=== PATIENT | male | born 1980 | race Caucasian/White ===

== ENCOUNTER 2017-10-28 13:03 | Emergency (ER) | payer MEDICARE, MEDICAID, SELFPAY ==
[2017-10-28 13:08] VITALS: BP 116/72; PULSE 83; RESP 16; TEMP 36.8; O2SAT 98
--- NOTE | 2017-10-28 13:08 | ED.GENADUL ---
Disposition Clinical Impression: Homicidal thoughts, Stress at home Disposition: HOME Condition: Stable Instructions: Stress (ED) Additional Instructions: Take your regular medications as directed. Follow-up with [facility] as directed. Return to the emergency department any worsening or new concerning symptoms. Medical Decision Making - Medical Decision Making 37-year-old male with history of schizoaffective disorder, Tourette's and polysubstance abuse who presents with homicidal ideation after a verbal argument with his brother prior to arrival. Debra from [facility] here to evaluate patient. She is well familiar with patient spoke to him prior to his arrival. Patient denies suicidal ideation. Patient still feels homicidal but denies feeling a plan at this time. Debra states that patient lives with his brother. Possible plan is for patient to go stay with his sister at this time. Vitals within normal limits. Patient appears relaxed and in no acute distress. He is cooperative and pleasant. Staff who is familiar with patient states that he appears much more relaxed than usual. No acute findings on exam. 1345 -- D/w Debra - pt will go to sister's house with sister and sister's for the weekend. He has to wait for sister to be home so he will temporarily go to his brother's house until they can pick him up. Patient admitted to feeling homicidal at times but denies any means or intent. He states he will stay away from his brother in a different part of the house. He states that if he starts to feel angry, he will go to the neighbor's house. Debra states she is unsure why he was even brought here as she encouraged patient to leave the house earlier and call the police if he needed if he was feeling homicidal and that he did not need to come to the emergency department. She has arranged for him to follow-up with [facility] next week. Patient will go home by [facility]. History of Present Illness - General Stated complaint: CALEX Time Seen by Provider: 10/28/17 13:05 Source: patient Mode of arrival: ambulatory Limitations: no limitations - History of Present Illness Initial comments: Patient is a 37-year-old male with history of schizoaffective disorder, polysubstance abuse who presents with homicidal ideation after a verbal argument with brother prior to arrival. Patient is well-known to mental health services and Debra layup worker JASON spoke to patient about this prior to his arrival and police were contacted and patient requested mental health services and they brought him here. Patient denies suicidal ideation. Patient states initially he had a plan to drag his brother's face across the pavement. He does state he still feels homicidal but denies this plan at present. Denies any acute medical complaints. Denies any drug or alcohol use today. Denies any hallucinations. - Related Data Risperidone [Risperdal] 6 mg PO DAILY 06/12/12 Divalproex ER [Depakote ER] 2,500 mg PO DAILY 08/04/14 Clonidine HCl 0.2 mg PO BID 06/10/16 LORazepam [Ativan] 1 mg PO PRN PRN 06/10/16 Thiothixene 5 mg PO BID 06/10/16 Acetaminophen [Tylenol] 500 mg PO Q4H PRN PRN 10/13/16 Aspirin [Aspir 81] 81 mg PO QAM 10/13/16 Desmopressin Acetate 0.05 mg PO HS 10/13/16 Docusate Sodium [Colace] 100 mg PO QAM PRN 10/13/16 Furosemide [Lasix] 10 mg PO QAM PRN 10/13/16 Ibuprofen 800 mg PO Q8H PRN 10/13/16 Nitroglycerin 0.4 mg SL PRN PRN 11/01/16 Allergies Allergy/AdvReac Type Severity Reaction Status Date / Time Penicillins Allergy Unknown Verified 10/28/17 13:11 hydrocodone bitartrate Allergy Skin Rash Verified 10/28/17 13:11 [From Vicodin] Review of Systems Constitutional: denies: chills, fever Eyes: denies: eye pain ENT: denies: ear pain, dental pain Respiratory: denies: cough, shortness of breath Cardiovascular: denies: chest pain, dyspnea on exertion Gastrointestinal: denies: abdominal pain, nausea, vomiting Genitourinary: denies: urgency, dysuria, frequency Musculoskeletal: denies: back pain Skin: denies: rash, lesions Neurological: denies: headache, weakness, numbness Psychiatric: homicidal thoughts. denies: suicidal thoughts Past Medical History - Past Medical History Medical history: hypertension Surgical history: other (finger surgery) Psychiatric history: other (Schizoaffective disorder, Tourette's syndrome, Polysubstance abuse) - Social History Smoking status: current everyday smoker Alcohol use: none Drug use: marijuana General Exam - General Limitations: no limitations General appearance: alert, in no apparent distress - Eye Eye exam: Present: EOMI - ENT ENT exam: Present: normal orophraynx - Neck Neck exam: Present: normal inspection - Respiratory Respiratory exam: Present: normal lung sounds bilaterally. Absent: respiratory distress, wheezes, rales, rhonchi, stridor - Cardiovascular Cardiovascular Exam: Present: regular rate, normal rhythm. Absent: bradycardia, tachycardia - Neurological Exam Neurological exam: Present: alert, oriented X3 - Psychiatric Psychiatric exam: Present: normal affect - Skin Skin exam: Present: warm, dry, intact
--- NOTE | 2017-10-28 13:54 | PDOC.MHCN ---
Presenting Issue: *How did they arrive here at ER and why did they come: CLient came in by ambulance after calling the police. Client stated that he had an argument with his brother and was feeling homicidal. Precipitating Factors: *Assessment of Safety SI/HI (address delusions if pertaining to the SI/HI) Claims HI but with no real means or intent Disposition: *Behavior: Docile *Eye Contact: NOrmal *Mood: Slightly agitated over brother, but pleasant towards staff *Affect:polite appreciative *Appetite: Good/ ate in ER *Sleep (trouble falling/staying asleep): Normal Plan: Client's sister was contacted and agreed to take him in for the weekend. Client's brother in law will cook pickled meat client from his brothers house around 6pm. Client stated that he could return back to his brother's house and remain calm and without confrontation until the brother in law picks him up. Client has agreed to this plan and will be sent home by [facility] taxjanette
--- NOTE | 2017-10-28 13:59 | PDOC.MHCN_ITS ---
Presenting Issue: *How did they arrive here at ER and why did they come: CLient came in by ambulance after calling the police. Client stated that he had an argument with his brother and was feeling homicidal. Precipitating Factors: *Assessment of Safety SI/HI (address delusions if pertaining to the SI/HI) Claims HI but with no real means or intent Disposition: *Behavior: Docile *Eye Contact: NOrmal *Mood: Slightly agitated over brother, but pleasant towards staff *Affect:polite appreciative *Appetite: Good/ ate in ER *Sleep (trouble falling/staying asleep): Normal Plan: Client's sister was contacted and agreed to take him in for the weekend. Client' s brother in law will berry picker machine operator client from his brothers house around 6pm. Client stated that he could return back to his brother's house and remain calm and without confrontation until the brother in law picks him up. Client has agreed to this plan and will be sent home by [facility] taxjanette
== END 2017-10-28 14:15 | disposition home or self-care (01) ==
PROVIDERS: Emergency Provider Physician Assistant; PCP Family Medicine
DX: F20.9 Schizophrenia, unspecified (principal); Z63.8 Other specified problems related to primary support group; R45.850 Homicidal ideations; I10 Essential (primary) hypertension
CPT/HCPCS: 99283 ×2

== ENCOUNTER 2018-01-01 08:37 | Outpatient (CLI) | payer MEDICARE, MEDICAID, SELFPAY ==
[2018-01-01 09:13] LABS: HCT 40.9 % (40.0-50.0); HGB 13.5 g/dL (13.5-17.5); Mean Corpuscular Hemoglobin 29.5 pg (27.0-33.0); Mean Corpuscular Volume 89.5 fL (80-95); Mean Platelet Volume 9.1 fL (8.0-11.0); Platelet Count 223 x1000/uL (130-400); RBC 4.57 m/cumm (4.50-6.00); RBC Distribution Width 13.7 % (11.8-14.1); White Blood Cell Count 5.87 k/cumm (4.4-10.8)
[2018-01-01 09:28] LABS: VALPROIC ACID 79.5 ug/mL (50-100)
[2018-01-01 09:53] LABS: Hemoglobin A1C 5.3 % (4.5-6.2)
[2018-01-01 10:16] LABS: ALT 10 U/L (12-78); AST 9 U/L (15-37); Albumin 3.3 g/dL (3.4-5.0); Alkaline Phosphatase 83 U/L (46-116); Anion Gap 4.9 mmol/L (3-11); BUN 6 mg/dL (7-18); Bilirubin, Total 0.3 mg/dL (0.2-1.0); CO2 33.1 mmol/L (21.0-32.0); CREATININE 0.64 mg/dL (0.70-1.30); Calcium 8.9 mg/dL (8.5-10.1); Chloride 95 mmol/L (98-107); Cholesterol 131 mg/dL (50-200); Glucose 80 mg/dL (70-100); HDL Cholesterol 42 mg/dL (40-60); LDL CHOLESTEROL 70 mg/dL (<100); Potassium 4.6 mmol/L (3.5-5.1); Sodium 133 mmol/L (136-145); Total Protein 7.8 g/dL (6.4-8.2); Triglyceride 114 mg/dL (30-150)
== END 2018-01-01 08:57 ==
PROVIDERS: PCP Family Medicine; Visit Provider Nurse Practitioner Psychiatric/Mental Health
DX: F25.1 Schizoaffective disorder, depressive type (principal); Z51.81 Encounter for therapeutic drug level monitoring; Z79.899 Other long term (current) drug therapy; I10 Essential (primary) hypertension
CPT/HCPCS: 36415; 80053; 80061; 83721; 85027; 80164; 83036

== ENCOUNTER 2018-01-16 12:52 | Outpatient (CLI) | payer MEDICARE, MEDICAID, SELFPAY ==
[2018-01-16 13:22] LABS: Abs Immature Grans 0.04 k/cumm (0.0-0.09); Absolute Eosinophil Count 0.05 k/cumm (0.0-0.7); Absolute Lymphocyte Count 1.84 k/cumm (1.2-3.4); Absolute Monocyte Count 0.47 k/cumm (0.11-0.7); Absolute Neutrophil Count 3.37 k/cumm (1.2-6.7); Eosinophils % 0.9; HCT 39.4 % (40.0-50.0); HGB 13.3 g/dL (13.5-17.5); Immature Grans % 0.7; Lymphocytes % 31.9; Mean Corp. HGB Concentration 33.8 g/dL (32.0-36.0); Mean Corpuscular Hemoglobin 29.8 pg (27.0-33.0); Mean Corpuscular Volume 88.3 fL (80-95); Mean Platelet Volume 9.3 fL (8.0-11.0); Monocytes % 8.1; Neutrophils % 58.4; Platelet Count 194 x1000/uL (130-400); RBC 4.46 m/cumm (4.50-6.00); RBC Distribution Width 13.9 % (11.8-14.1); White Blood Cell Count 5.77 k/cumm (4.4-10.8)
[2018-01-16 13:40] LABS: C-Reactive Protein 3.03 mg/dL (0.0-0.3)
[2018-01-16 13:42] LABS: Troponin I < 0.02 ng/mL (0.00-0.06)
[2018-01-17 22:25] LABS: Clozapine <25 ng/mL (>350); Clozapine+Norclozapine Total Unable to calculate ng/mL (>450); Norclozapine <25 ng/mL
== END 2018-01-16 13:12 ==
PROVIDERS: PCP Family Medicine; Visit Provider Nurse Practitioner Psychiatric/Mental Health
DX: F25.1 Schizoaffective disorder, depressive type (principal); Z51.81 Encounter for therapeutic drug level monitoring; Z79.899 Other long term (current) drug therapy
CPT/HCPCS: 80159; 84484; 85025; 86140

== ENCOUNTER 2018-01-16 17:47 | Emergency (ER) | payer MEDICARE, MEDICAID, SELFPAY ==
[2018-01-16 17:52] VITALS: BP 133/66; PULSE 82; RESP 18; TEMP 36.7; O2SAT 98
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
--- NOTE | 2018-01-16 20:28 | PDOC.MHCN_ITS ---
Date of service: 01/16/18 Time of Service: 19:58 Mental Health Crisis Note Presenting Issue How did you arrive at the ED and why did you come: Patient arrived at the Emergency Department via private vehicle. He was brought in by his sister/ lead setter for homicidal ideation. Precipitating Factors Patient denies SI but states that he has homicidal ideations. He states that he is frustrated with his sister who is his lead setter. He states that she constantly lies and psychoanalyzes him. . He states that she locks him in the cold basement and feeds him crap such as pasta while her and her family get to enjoy a warm meal at the dining room table. He states that he has begun to have homicidal thoughts towards her and her family for this reason. He states that he has several dark movies and songs running though his mind. Some of these include Monday the , Hallow, Nightmare on [employer], and Joaquín vs. Brody. He states that he wants his sister/lead setter and her family to a slow and painful . Disposition BEHAVIOR: No abnormal behavior. Patient is coloring/writing with crayons. EYE CONTACT: Intermittent MOOD: Calm AFFECT: Flat APPETITE: Patient states that his sister/lead setter feeds him crap while they eat nice warm meals at the dining room table SLEEP(trouble falling/staying asleep: Unknown Plan Due to the patient having homicidal ideation he will remain at the hospital on a voluntary status. He will be re-evaluated in the morning by his pipe organ mechanic apprentice though [facility]. In-patient referrals have been sent to [facility], [facility], and [facility]. Signature Clinician's Name/Title: Eve Lassiter - [facility] Emergency Clinician
--- NOTE | 2018-01-16 20:35 | PDOC.ERCMPRO ---
Care Management Progress Note CM did not receive alert from ED regarding patient. Chief Complaint: Well known [facility] connected patient with history of schizoaffective disorder, tourette syndrome and polysubstance abuse presents to ED with HI toward family. MH screener deemed patient unsafe for discharge due to HI toward family members within his home setting. Reports intention for re-evaluation in the morning; Andriy will remain in ED overnight. Referrals faxed for psychiatric stabilization. Andriy is communicating appropriately. CM will facilitate interdepartmental huddle with [facility] screener for safety planning considerations and meet with patient to review [facility] policy and safety plan, establish individual wishes for treatment and maintain patient rights; tomorrow morning if re-evaluation warrants. In the interim; please note safety plan below to guide patient care while remaining in the ED overnight. SAFETY PLAN: 1. Will remain on precautions and in paper clothes. 2. Will remain in room under direct supervision of ED medical staff, permitted use of restroom with escort. 3. May have paper cups, plates, finger foods. 4. Follow [facility] Management of the Admitted Behavioral Health Patient policy. 5. Comfort bath system only. 6. No personal belongings; at RN discretion. 7. No visitors. If deemed appropriate for inpatient psychiatric care, safety plan will be established with patient, and care team, to adhere to patient goals, identify restrictions based on behavioral status, address nutrition, and determine allowed personal belongings, tools for hygiene and personal care. As well, plan will determine level of activity including ambulation, level of supervision, visitors, and determine privileges based on level of acuity, behaviors and level of engagement by patient. Please contact search engine optimization consultant personal care aide for changes to care plan; [phone]. - MH Services (Omit if N/A) Current MH Services: OVEN UNLOADER ([facility])
--- NOTE | 2018-01-16 20:37 | PDOC.ERCMPRO ---
- If Service Date Differs Date of service: 01/16/18 Time of Service: 20:37 Care Management Progress Note CM completed chart review and met with the Andriy at the bedside. Andriy smiles frequently the only request he has is to go outside and smoke a cigarette or cannabis. Andriy is well known to mental health and is a DETECTIVE client. He has a history of schizoaffective disorder. He has been living with his sister and she is his senior advisory. Kalpana at [facility] is his DETECTIVE case preparer and liner. Andriy was brought to the ED tonight for homicidal thoughts toward his sister and her family. Please see assessment and crisis [facility] Eve Lassiter. Andriy is well known to the ED from previous encounters. Per states Andriy is not a threat at this time and is not suicidal. is not ordering a CPSO at this time. Andriy is a VOLUNTARY FOR INPATIENT PSYCHIATRIC STABILIZATION. Current behaviors: Andriy has been cooperative and appropriate in all interactions since arriving at [facility]; he has demonstrated appropriate coping and communication skills, has articulated his needs and concerns and is fully engaged during staff interactions. Huddle Participants: Time and Date: 01/16/18 2100. Prior to huddle CM met with and prior to huddle, then with GALEN Sterling claims adjuster supervisor, Eve, Sara [facility], and GALEN De La Paz CM. CM met with primary nurse Deborah to review current plan. Safety plan has been established with patient, and care team, to adhere to patient goals, identify restrictions based on behavioral status, address nutrition, and determine allowed personal belongings, tools for hygiene and personal care. Determine level of activity including ambulation, level of supervision, visitors, and determine privileges based on behaviors and level of engagement by pt. Room 5 SAFETY PLAN: 1. Will remain in paper clothing at this time. 2. No CPSO at this time per provider to reassessed if patient status changes. 3. May have paper cups, plates, finger foods as well as a metal spoon with which to eat meals. [facility] staff will be responsible for accounting of utensils after meals. 4. Follow [facility] Management of the Admitted Behavioral Health Patient policy. 5. Comfort bath system only. 6. No personal belongings in the room. 7. No visitors at this time with the exception of his DETECTIVE case management support. 8. Activities coloring books, crayons, books, barbara if available and TV if available. Andriy may have nicotine inhaler at the bedside. Patient is currently voluntarily at [facility] and seeking inpatient admission when a bed becomes available. [facility] , Front line Brand Ambassador Promotional Model will continue seeking placement. Current update referrals have been sent to [facility] and B[facility] retreajayme. [facility] is reviewing and the only site with a bed. No offer at this time. CM reviewed patient with Margie at [facility] they have requested labs including CBC, BMP, TSH, urine tox and UA. Results should be faxed immediately to [phone]. Please contact the Upper Tier Lease Attendant ([phone]) and [facility] Brand Ambassador Promotional Model ([phone]) for any needed changes in the Safety Plan. Safety plan has been provided to interdepartmental care team including and Nursing Master Naval Parachutist.
--- NOTE | 2018-01-16 20:51 | CMPROGNOTE_ITS ---
Care Management Progress Note CM did not receive alert from ED regarding patient. Chief Complaint: Well known [facility] connected patient with history of schizoaffective disorder, tourette syndrome and polysubstance abuse presents to ED with HI toward family. MH screener deemed patient unsafe for discharge due to HI toward family members within his home setting. Reports intention for re-evaluation in the morning; Andriy will remain in ED overnight. Referrals faxed for psychiatric stabilization. Andriy is communicating appropriately. CM will facilitate interdepartmental huddle with [facility] screener for safety planning considerations and meet with patient to review [facility] policy and safety plan, establish individual wishes for treatment and maintain patient rights; tomorrow morning if re-evaluation warrants. In the interim; please note safety plan below to guide patient care while remaining in the ED overnight. SAFETY PLAN: 1. Will remain on precautions and in paper clothes. 2. Will remain in room under direct supervision of ED medical staff, permitted use of restroom with escort. 3. May have paper cups, plates, finger foods. 4. Follow [facility] Management of the Admitted Behavioral Health Patient policy. 5. Comfort bath system only. 6. No personal belongings; at RN discretion. 7. No visitors. If deemed appropriate for inpatient psychiatric care, safety plan will be established with patient, and care team, to adhere to patient goals, identify restrictions based on behavioral status, address nutrition, and determine allowed personal belongings, tools for hygiene and personal care. As well, plan will determine level of activity including ambulation, level of supervision, visitors, and determine privileges based on level of acuity, behaviors and level of engagement by patient. Please contact mechanical engineering draftsperson caregiver services home for changes to care plan; [phone]. - MH Services (Omit if N/A) Current MH Services: SETUP TECHNICIAN ([facility])
--- NOTE | 2018-01-16 21:06 | CMPROGNOTE_ITS ---
- If Service Date Differs Date of service: 01/16/18 Time of Service: 20:37 Care Management Progress Note CM completed chart review and met with the Andriy at the bedside. Andriy smiles frequently the only request he has is to go outside and smoke a cigarette or cannabis. Andriy is well known to mental health and is a [employer] client. He has a history of schizoaffective disorder. He has been living with his sister and she is his pug mill operator helper. Kalpana at [facility] is his PEOPLESOFT CONSULTANT cyanide case hardener. Andriy was brought to the ED tonight for homicidal thoughts toward his sister and her family. Please see assessment and crisis [facility] Eve Lassiter. Andriy is well known to the ED from previous encounters. Per states Andriy is not a threat at this time and is not suicidal. is not ordering a CPSO at this time. Andriy is a VOLUNTARY FOR INPATIENT PSYCHIATRIC STABILIZATION. Current behaviors: Andriy has been cooperative and appropriate in all interactions since arriving at [facility]; he has demonstrated appropriate coping and communication skills, has articulated his needs and concerns and is fully engaged during staff interactions. Huddle Participants: Time and Date: 01/16/18 2100. Prior to huddle CM met with and prior to huddle, then with GALEN Sterling security shift supervisor, Eve , Sara [facility], and GALEN De La Paz CM. CM met with primary nurse Deborah to review current plan. Safety plan has been established with patient, and care team, to adhere to patient goals, identify restrictions based on behavioral status, address nutrition, and determine allowed personal belongings, tools for hygiene and personal care. Determine level of activity including ambulation, level of supervision, visitors, and determine privileges based on behaviors and level of engagement by pt. Room 5 SAFETY PLAN: 1. Will remain in paper clothing at this time. 2. No CPSO at this time per provider to reassessed if patient status changes. 3. May have paper cups, plates, finger foods as well as a metal spoon with which to eat meals. [facility] staff will be responsible for accounting of utensils after meals. 4. Follow [facility] Management of the Admitted Behavioral Health Patient policy. 5. Comfort bath system only. 6. No personal belongings in the room. 7. No visitors at this time with the exception of his PEOPLESOFT CONSULTANT case management support. 8. Activities coloring books, crayons, books, barbara if available and TV if available. Andriy may have nicotine inhaler at the bedside. Patient is currently voluntarily at [facility] and seeking inpatient admission when a bed becomes available. [facility] , Front line Enrollment Services Vice President will continue seeking placement. Current update referrals have been sent to [facility] and B. retreajayme. [facility] is reviewing and the only site with a bed. No offer at this time. CM reviewed patient with Margie at [facility] they have requested labs including CBC, BMP, TSH, urine tox and UA. Results should be faxed immediately to [phone]. Please contact the Ferry Terminal Agent Enroller ([phone]) and [facility] Enrollment Services Vice President ([phone]) for any needed changes in the Safety Plan. Safety plan has been provided to interdepartmental care team including and Nursing Investment Professional.
[2018-01-16 22:20] LABS: Anion Gap 11.4 mmol/L (3-11); BUN 11 mg/dL (7-18); CO2 25.6 mmol/L (21.0-32.0); CREATININE 0.55 mg/dL (0.70-1.30); Calcium 9.4 mg/dL (8.5-10.1); Chloride 91 mmol/L (98-107); Glucose 85 mg/dL (70-100); Potassium 4.2 mmol/L (3.5-5.1); Sodium 128 mmol/L (136-145); TSH (W/Ref FT4) 3.46 uIU/mL (0.358-3.74)
[2018-01-16 22:20] LABS: *AMPHETAMINES SCREEN URINE Negative (Negative); *BARBITURATES SCREEN URINE Negative (Negative); *BENZODIAZEPINES SCREEN URINE Negative (Negative); Cannabinoids THC Negative (Negative); Cocaine Screen,Urine Negative (Negative); METHADONE URINE SCREEN Negative (Negative); OPIATES URINE SCREEN Negative (Negative)
[2018-01-16 22:21] LABS: Tricyclic Antidepressants Negative (Negative)
[2018-01-16 22:23] LABS: Bilirubin Negative (Negative); Blood Negative (Negative); Clarity Clear; Glucose 100 mg/dL (Negative); Ketones Trace mg/dL (Negative); Leukocyte Esterase Negative (Negative); Nitrite Negative (Negative)
[2018-01-16 22:58] LABS: Anion Gap 6.6 mmol/L (3-11); BUN 10 mg/dL (7-18); CO2 29.4 mmol/L (21.0-32.0); CREATININE 0.61 mg/dL (0.70-1.30); Calcium 8.8 mg/dL (8.5-10.1); Chloride 94 mmol/L (98-107); Glucose 110 mg/dL (70-100); Potassium 4.2 mmol/L (3.5-5.1); Sodium 130 mmol/L (136-145)
--- NOTE | 2018-01-16 23:18 | NUR.NOTE ---
Nursing Note: Pt is unsure of what his medications are, he states JASON prescribes & dispenses all his medications I just take what they give me. [facility] Worker paged for med list consult.
[2018-01-17] MEDS: cloNIDine 0.1 MG TAB 0.2 MG PO (08:20)
--- NOTE | 2018-01-17 08:20 | NUR.NOTE ---
pt in room, drawing with color crayons. has been up to the bathroom. has eaten breakfast. occassional loud laughing sounds coming out of him-not sure why he is doing this. has taken his medication. Nursing Note:
[2018-01-17 08:23] VITALS: BP 138/85; PULSE 71; RESP 16; TEMP 37; O2SAT 94
[2018-01-17] MEDS: risperiDONE 1 MG TAB 3 MG PO (08:30)
--- NOTE | 2018-01-17 08:41 | PDOC.ERCMPRO ---
Care Management Progress Note 89--This CM called [facility] and spoke with Sandie. Sandie will fax over the H&P and med list by Dr. Oglesby. Discussed Andriy's information with Dr. Palomares. Dr. Palomares requested this CM reach out to [facility]. Called [facility] and spoke with Verena. Verena requested Dr. Oglesby's notes and med list be faxed to [phone] along with [facility] visit summary. Information requested faxed. Verena stated that a nurse will review new information and call Dr. Palomares directly in the ED. Gave Verena Palomares's number in the ED. Will wait for further information on transfer from [facility]. Once [facility] confirms bed availability and acceptance, will discuss with Sheriff Nino, about transportation. Discussed with Nino so that he is aware. Marce, Lamps Tester And Inspector, call in and stated that Eve from [facility] called in and stated that ACCOUNTING SUPPORT SPECIALIST would come in this morning.
--- NOTE | 2018-01-17 08:46 | CMPROGNOTE_ITS ---
Care Management Progress Note 43--This CM called [facility] and spoke with Sandie. Sandie will fax over the H& P and med list by Dr. Oglesby. Discussed Andriy's information with Dr. Palomares. Dr. Palomares requested this CM reach out to [facility]. Called [facility] and spoke with Verena. Verena requested Dr. Oglesby's notes and med list be faxed to [phone] along with [facility] visit summary. Information requested faxed. Verena stated that a nurse will review new information and call Dr. Palomares directly in the ED. Gave Verena Palomares's number in the ED. Will wait for further information on transfer from [facility]. Once [facility] confirms bed availability and acceptance, will discuss with Sheriff Nino, about transportation. Discussed with Nino so that he is aware. Marce, Unit Educator, call in and stated that Eve from [facility] called in and stated that STAPLING MACHINE OPERATOR would come in this morning.
[2018-01-17 12:39] VITALS: BP 119/74; PULSE 72; RESP 14; TEMP 36.7; O2SAT 96
== END 2018-01-17 13:10 | disposition short-term general hospital (02) ==
PROVIDERS: Emergency Medicine; Emergency Provider Student in an Organized Health Care Education/Training Program; PCP Family Medicine
DX: F25.9 Schizoaffective disorder, unspecified (principal); R45.850 Homicidal ideations
CPT/HCPCS: 36415; 80048; 80307; 85027; 99285; 80159; 81003; 84443; 84484; 85025; 86140; 99284

== ENCOUNTER 2018-01-30 11:45 | Outpatient (CLI) | payer MEDICARE, MEDICAID, SELFPAY ==
[2018-01-30 12:32] LABS: Abs Immature Grans 0.03 k/cumm (0.0-0.09); Absolute Basophil Count 0.02 k/cumm (0.0-0.2); Absolute Eosinophil Count 0.18 k/cumm (0.0-0.7); Absolute Lymphocyte Count 1.45 k/cumm (1.2-3.4); Absolute Monocyte Count 0.59 k/cumm (0.11-0.7); Absolute Neutrophil Count 4.85 k/cumm (1.2-6.7); Basophils % 0.3; Eosinophils % 2.5; HCT 38.8 % (40.0-50.0); HGB 13.1 g/dL (13.5-17.5); Immature Grans % 0.4; Lymphocytes % 20.4; Mean Corp. HGB Concentration 33.8 g/dL (32.0-36.0); Mean Corpuscular Hemoglobin 29.7 pg (27.0-33.0); Mean Platelet Volume 9.6 fL (8.0-11.0); Monocytes % 8.3; Neutrophils % 68.1; Platelet Count 249 x1000/uL (130-400); RBC 4.41 m/cumm (4.50-6.00); RBC Distribution Width 13.5 % (11.8-14.1); White Blood Cell Count 7.12 k/cumm (4.4-10.8)
[2018-01-30 13:32] LABS: Troponin I < 0.02 ng/mL (0.00-0.06)
== END 2018-01-30 12:05 ==
PROVIDERS: PCP Family Medicine; Visit Provider Nurse Practitioner Psychiatric/Mental Health
DX: F25.1 Schizoaffective disorder, depressive type (principal); Z79.899 Other long term (current) drug therapy
CPT/HCPCS: 36415; 84484; 85025; 86140

== ENCOUNTER 2018-02-07 12:51 | Outpatient (CLI) | payer MEDICARE, MEDICAID, SELFPAY ==
[2018-02-07 13:23] LABS: Abs Immature Grans 0.04 k/cumm (0.0-0.09); Absolute Basophil Count 0.01 k/cumm (0.0-0.2); Absolute Monocyte Count 0.54 k/cumm (0.11-0.7); Absolute Neutrophil Count 3.24 k/cumm (1.2-6.7); Basophils % 0.2; Eosinophils % 1.6; HCT 38.3 % (40.0-50.0); Immature Grans % 0.7; Lymphocytes % 35.9; Mean Corp. HGB Concentration 33.9 g/dL (32.0-36.0); Mean Corpuscular Hemoglobin 29.3 pg (27.0-33.0); Mean Corpuscular Volume 86.5 fL (80-95); Mean Platelet Volume 9.3 fL (8.0-11.0); Monocytes % 8.8; Neutrophils % 52.8; Platelet Count 235 x1000/uL (130-400); RBC 4.43 m/cumm (4.50-6.00); RBC Distribution Width 13.5 % (11.8-14.1); White Blood Cell Count 6.13 k/cumm (4.4-10.8)
[2018-02-07 13:56] LABS: C-Reactive Protein 4.36 mg/dL (0.0-0.3)
[2018-02-07 13:59] LABS: Troponin I < 0.02 ng/mL (0.00-0.06)
== END 2018-02-07 13:11 ==
PROVIDERS: PCP Family Medicine; Visit Provider Nurse Practitioner Psychiatric/Mental Health
DX: F25.1 Schizoaffective disorder, depressive type (principal)
CPT/HCPCS: 36415; 84484; 85025; 86140

== ENCOUNTER 2018-02-14 12:45 | Outpatient (CLI) | payer MEDICARE, MEDICAID, SELFPAY ==
[2018-02-14 13:22] LABS: Abs Immature Grans 0.05 k/cumm (0.0-0.09); Absolute Basophil Count 0.01 k/cumm (0.0-0.2); Absolute Eosinophil Count 0.09 k/cumm (0.0-0.7); Absolute Lymphocyte Count 1.58 k/cumm (1.2-3.4); Absolute Monocyte Count 0.66 k/cumm (0.11-0.7); Basophils % 0.2; Eosinophils % 1.4; HCT 38.3 % (40.0-50.0); HGB 13.3 g/dL (13.5-17.5); Immature Grans % 0.8; Lymphocytes % 24.7; Mean Corp. HGB Concentration 34.7 g/dL (32.0-36.0); Mean Corpuscular Hemoglobin 29.8 pg (27.0-33.0); Mean Corpuscular Volume 85.7 fL (80-95); Mean Platelet Volume 9.1 fL (8.0-11.0); Monocytes % 10.3; Neutrophils % 62.6; Platelet Count 215 x1000/uL (130-400); RBC 4.47 m/cumm (4.50-6.00); RBC Distribution Width 13.5 % (11.8-14.1); White Blood Cell Count 6.39 k/cumm (4.4-10.8)
[2018-02-14 14:23] LABS: C-Reactive Protein 2.49 mg/dL (0.0-0.3)
[2018-02-14 14:24] LABS: Troponin I < 0.02 ng/mL (0.00-0.06)
== END 2018-02-14 13:05 ==
PROVIDERS: PCP Family Medicine; Visit Provider Nurse Practitioner Psychiatric/Mental Health
DX: F25.1 Schizoaffective disorder, depressive type (principal); Z79.899 Other long term (current) drug therapy
CPT/HCPCS: 36415; 84484; 85025; 86140

== ENCOUNTER 2018-02-21 15:40 | Outpatient (CLI) | payer MEDICARE, MEDICAID, SELFPAY ==
[2018-02-21 16:13] LABS: Abs Immature Grans 0.03 k/cumm (0.0-0.09); Absolute Basophil Count 0.01 k/cumm (0.0-0.2); Absolute Eosinophil Count 0.11 k/cumm (0.0-0.7); Absolute Lymphocyte Count 2.24 k/cumm (1.2-3.4); Absolute Monocyte Count 0.57 k/cumm (0.11-0.7); Absolute Neutrophil Count 3.52 k/cumm (1.2-6.7); Basophils % 0.2; Eosinophils % 1.7; HCT 40.7 % (40.0-50.0); HGB 13.6 g/dL (13.5-17.5); Immature Grans % 0.5; Lymphocytes % 34.6; Mean Corp. HGB Concentration 33.4 g/dL (32.0-36.0); Mean Corpuscular Hemoglobin 29.6 pg (27.0-33.0); Mean Corpuscular Volume 88.5 fL (80-95); Monocytes % 8.8; Neutrophils % 54.2; Platelet Count 231 x1000/uL (130-400); White Blood Cell Count 6.48 k/cumm (4.4-10.8)
== END 2018-02-21 16:00 ==
PROVIDERS: PCP Family Medicine; Visit Provider Nurse Practitioner Psychiatric/Mental Health
DX: F25.1 Schizoaffective disorder, depressive type (principal); Z79.899 Other long term (current) drug therapy; I10 Essential (primary) hypertension
CPT/HCPCS: 36415; 85025

== ENCOUNTER 2018-02-28 01:56 | Outpatient (CLI) | payer MEDICARE, MEDICAID, SELFPAY ==
[2018-02-28 13:34] LABS: Abs Immature Grans 0.02 k/cumm (0.0-0.09); Absolute Basophil Count 0.01 k/cumm (0.0-0.2); Absolute Eosinophil Count 0.12 k/cumm (0.0-0.7); Absolute Lymphocyte Count 2.05 k/cumm (1.2-3.4); Absolute Monocyte Count 0.59 k/cumm (0.11-0.7); Absolute Neutrophil Count 3.24 k/cumm (1.2-6.7); Basophils % 0.2; HCT 40.5 % (40.0-50.0); HGB 13.8 g/dL (13.5-17.5); Immature Grans % 0.3; Mean Corp. HGB Concentration 34.1 g/dL (32.0-36.0); Mean Corpuscular Hemoglobin 29.8 pg (27.0-33.0); Mean Corpuscular Volume 87.5 fL (80-95); Mean Platelet Volume 9.5 fL (8.0-11.0); Monocytes % 9.8; Neutrophils % 53.7; Platelet Count 240 x1000/uL (130-400); RBC 4.63 m/cumm (4.50-6.00); RBC Distribution Width 13.9 % (11.8-14.1); White Blood Cell Count 6.03 k/cumm (4.4-10.8)
== END 2018-02-28 02:16 ==
PROVIDERS: PCP Family Medicine; Visit Provider Nurse Practitioner Psychiatric/Mental Health
DX: F25.1 Schizoaffective disorder, depressive type (principal); Z79.899 Other long term (current) drug therapy
CPT/HCPCS: 36415; 85025

== ENCOUNTER 2018-03-07 02:07 | Outpatient (CLI) | payer MEDICARE, MEDICAID, SELFPAY ==
[2018-03-07 13:05] LABS: Abs Immature Grans 0.02 k/cumm (0.0-0.09); Absolute Basophil Count 0.01 k/cumm (0.0-0.2); Absolute Eosinophil Count 0.09 k/cumm (0.0-0.7); Absolute Monocyte Count 0.61 k/cumm (0.11-0.7); Absolute Neutrophil Count 2.84 k/cumm (1.2-6.7); Basophils % 0.2; Eosinophils % 1.8; HCT 40.8 % (40.0-50.0); HGB 13.5 g/dL (13.5-17.5); Immature Grans % 0.4; Lymphocytes % 29.6; Mean Corp. HGB Concentration 33.1 g/dL (32.0-36.0); Mean Corpuscular Hemoglobin 29.3 pg (27.0-33.0); Mean Corpuscular Volume 88.7 fL (80-95); Mean Platelet Volume 9.5 fL (8.0-11.0); Platelet Count 205 x1000/uL (130-400); White Blood Cell Count 5.07 k/cumm (4.4-10.8)
== END 2018-03-07 02:27 ==
PROVIDERS: PCP Family Medicine; Visit Provider Nurse Practitioner Psychiatric/Mental Health
DX: F25.1 Schizoaffective disorder, depressive type (principal); Z79.899 Other long term (current) drug therapy
CPT/HCPCS: 36415; 85025

== ENCOUNTER 2018-03-14 01:55 | Outpatient (CLI) | payer MEDICARE, MEDICAID, SELFPAY ==
[2018-03-14 12:59] LABS: Abs Immature Grans 0.02 k/cumm (0.0-0.09); Absolute Basophil Count 0.01 k/cumm (0.0-0.2); Absolute Eosinophil Count 0.06 k/cumm (0.0-0.7); Absolute Lymphocyte Count 1.43 k/cumm (1.2-3.4); Absolute Monocyte Count 0.56 k/cumm (0.11-0.7); Absolute Neutrophil Count 2.65 k/cumm (1.2-6.7); Basophils % 0.2; Eosinophils % 1.3; HCT 39.2 % (40.0-50.0); HGB 13.1 g/dL (13.5-17.5); Immature Grans % 0.4; Lymphocytes % 30.2; Mean Corp. HGB Concentration 33.4 g/dL (32.0-36.0); Mean Corpuscular Hemoglobin 29.6 pg (27.0-33.0); Mean Corpuscular Volume 88.7 fL (80-95); Mean Platelet Volume 9.9 fL (8.0-11.0); Monocytes % 11.8; Neutrophils % 56.1; Platelet Count 190 x1000/uL (130-400); RBC 4.42 m/cumm (4.50-6.00); RBC Distribution Width 14.3 % (11.8-14.1); White Blood Cell Count 4.73 k/cumm (4.4-10.8)
== END 2018-03-14 02:15 ==
PROVIDERS: PCP Family Medicine; Visit Provider Nurse Practitioner Psychiatric/Mental Health
DX: F25.1 Schizoaffective disorder, depressive type (principal)
CPT/HCPCS: 36415; 85025

== ENCOUNTER 2018-03-23 13:08 | Outpatient (CLI) | payer MEDICARE, MEDICAID, SELFPAY ==
[2018-03-23 13:52] LABS: Abs Immature Grans 0.04 k/cumm (0.0-0.09); Absolute Eosinophil Count 0.14 k/cumm (0.0-0.7); Absolute Lymphocyte Count 1.79 k/cumm (1.2-3.4); Absolute Monocyte Count 0.51 k/cumm (0.11-0.7); Absolute Neutrophil Count 1.98 k/cumm (1.2-6.7); Eosinophils % 3.1; HGB 12.5 g/dL (13.5-17.5); Immature Grans % 0.9; Lymphocytes % 40.1; Mean Corp. HGB Concentration 32.9 g/dL (32.0-36.0); Mean Corpuscular Hemoglobin 29.4 pg (27.0-33.0); Mean Corpuscular Volume 89.4 fL (80-95); Mean Platelet Volume 9.4 fL (8.0-11.0); Monocytes % 11.4; Neutrophils % 44.5; Platelet Count 199 x1000/uL (130-400); RBC 4.25 m/cumm (4.50-6.00); RBC Distribution Width 13.9 % (11.8-14.1); White Blood Cell Count 4.46 k/cumm (4.4-10.8)
== END 2018-03-23 13:28 ==
PROVIDERS: PCP Family Medicine; Visit Provider Nurse Practitioner Psychiatric/Mental Health
DX: F25.1 Schizoaffective disorder, depressive type (principal); Z79.899 Other long term (current) drug therapy
CPT/HCPCS: 36415; 85025

== ENCOUNTER 2018-03-28 12:51 | Outpatient (CLI) | payer MEDICARE, MEDICAID, SELFPAY ==
[2018-03-28 13:16] LABS: Abs Immature Grans 0.02 k/cumm (0.0-0.09); Absolute Basophil Count 0.01 k/cumm (0.0-0.2); Absolute Lymphocyte Count 1.98 k/cumm (1.2-3.4); Absolute Monocyte Count 0.51 k/cumm (0.11-0.7); Absolute Neutrophil Count 2.69 k/cumm (1.2-6.7); Basophils % 0.2; Eosinophils % 1.9; HCT 41.3 % (40.0-50.0); HGB 13.5 g/dL (13.5-17.5); Immature Grans % 0.4; Lymphocytes % 37.3; Mean Corp. HGB Concentration 32.7 g/dL (32.0-36.0); Mean Corpuscular Hemoglobin 29.1 pg (27.0-33.0); Mean Platelet Volume 9.5 fL (8.0-11.0); Monocytes % 9.6; Neutrophils % 50.6; Platelet Count 204 x1000/uL (130-400); RBC 4.64 m/cumm (4.50-6.00); RBC Distribution Width 14.1 % (11.8-14.1); White Blood Cell Count 5.31 k/cumm (4.4-10.8)
== END 2018-03-28 13:11 ==
PROVIDERS: PCP Family Medicine; Visit Provider Nurse Practitioner Psychiatric/Mental Health
DX: F25.1 Schizoaffective disorder, depressive type (principal); Z79.899 Other long term (current) drug therapy
CPT/HCPCS: 36415; 85025

== ENCOUNTER 2018-04-06 14:51 | Outpatient (CLI) | payer MEDICARE, MEDICAID, SELFPAY ==
[2018-04-06 15:26] LABS: Abs Immature Grans 0.03 k/cumm (0.0-0.09); Absolute Basophil Count 0.01 k/cumm (0.0-0.2); Absolute Eosinophil Count 0.05 k/cumm (0.0-0.7); Absolute Lymphocyte Count 1.92 k/cumm (1.2-3.4); Absolute Monocyte Count 0.69 k/cumm (0.11-0.7); Absolute Neutrophil Count 2.31 k/cumm (1.2-6.7); Basophils % 0.2; HGB 12.3 g/dL (13.5-17.5); Immature Grans % 0.6; Lymphocytes % 38.3; Mean Corp. HGB Concentration 32.4 g/dL (32.0-36.0); Mean Corpuscular Hemoglobin 29.1 pg (27.0-33.0); Mean Platelet Volume 9.6 fL (8.0-11.0); Monocytes % 13.8; Neutrophils % 46.1; Platelet Count 214 x1000/uL (130-400); RBC 4.22 m/cumm (4.50-6.00); RBC Distribution Width 14.3 % (11.8-14.1); White Blood Cell Count 5.01 k/cumm (4.4-10.8)
== END 2018-04-06 15:11 ==
PROVIDERS: PCP Family Medicine; Visit Provider Nurse Practitioner Psychiatric/Mental Health
DX: F25.1 Schizoaffective disorder, depressive type (principal); Z79.899 Other long term (current) drug therapy
CPT/HCPCS: 36415; 85025

== ENCOUNTER 2018-04-11 01:51 | Outpatient (CLI) | payer MEDICARE, MEDICAID, SELFPAY ==
[2018-04-11 13:43] LABS: Abs Immature Grans 0.08 k/cumm (0.0-0.09); Absolute Basophil Count 0.01 k/cumm (0.0-0.2); Absolute Eosinophil Count 0.47 k/cumm (0.0-0.7); Absolute Lymphocyte Count 1.75 k/cumm (1.2-3.4); Absolute Monocyte Count 0.65 k/cumm (0.11-0.7); Absolute Neutrophil Count 2.11 k/cumm (1.2-6.7); Basophils % 0.2; Eosinophils % 9.3; HCT 38.7 % (40.0-50.0); HGB 12.7 g/dL (13.5-17.5); Immature Grans % 1.6; Lymphocytes % 34.5; Mean Corp. HGB Concentration 32.8 g/dL (32.0-36.0); Mean Corpuscular Hemoglobin 28.7 pg (27.0-33.0); Mean Corpuscular Volume 87.4 fL (80-95); Mean Platelet Volume 10.3 fL (8.0-11.0); Monocytes % 12.8; Neutrophils % 41.6; Platelet Count 185 x1000/uL (130-400); RBC 4.43 m/cumm (4.50-6.00); RBC Distribution Width 14.3 % (11.8-14.1); White Blood Cell Count 5.07 k/cumm (4.4-10.8)
== END 2018-04-11 02:11 ==
PROVIDERS: PCP Family Medicine; Visit Provider Nurse Practitioner Psychiatric/Mental Health
DX: F25.1 Schizoaffective disorder, depressive type (principal); Z79.899 Other long term (current) drug therapy
CPT/HCPCS: 36415; 85025

== ENCOUNTER 2018-04-18 02:06 | Outpatient (CLI) | payer MEDICARE, MEDICAID, SELFPAY ==
[2018-04-18 15:39] LABS: Abs Immature Grans 0.02 k/cumm (0.0-0.09); Absolute Basophil Count 0.01 k/cumm (0.0-0.2); Absolute Eosinophil Count 0.06 k/cumm (0.0-0.7); Absolute Monocyte Count 0.62 k/cumm (0.11-0.7); Absolute Neutrophil Count 2.95 k/cumm (1.2-6.7); Basophils % 0.2; Eosinophils % 1.1; HCT 41.1 % (40.0-50.0); HGB 13.5 g/dL (13.5-17.5); Immature Grans % 0.4; Mean Corp. HGB Concentration 32.8 g/dL (32.0-36.0); Mean Corpuscular Hemoglobin 29.2 pg (27.0-33.0); Mean Corpuscular Volume 88.8 fL (80-95); Mean Platelet Volume 10.1 fL (8.0-11.0); Monocytes % 11.4; Neutrophils % 53.9; Platelet Count 245 x1000/uL (130-400); RBC 4.63 m/cumm (4.50-6.00); RBC Distribution Width 14.2 % (11.8-14.1); White Blood Cell Count 5.46 k/cumm (4.4-10.8)
== END 2018-04-18 02:26 ==
PROVIDERS: PCP Family Medicine; Visit Provider Nurse Practitioner Psychiatric/Mental Health
DX: F25.1 Schizoaffective disorder, depressive type (principal); Z79.899 Other long term (current) drug therapy
CPT/HCPCS: 36415; 85025